=== PATIENT | male | born 1955 | race Caucasian/White ===

== ENCOUNTER 2019-08-17 13:44 | Inpatient (IN) | payer OTHER, MEDICAID ==
[~2019-08-17] VITALS: Ht 170.2 cm; Wt 58.1 kg
--- NOTE | 2019-08-17 13:47 | NUR ---
Patient to ER bed 05 to gown for evaluation. Side rails up.
[2019-08-17 13:49] VITALS: BP_SYST 110
--- NOTE | 2019-08-17 13:50 | NUR ---
Patient BIB BLS from [facility] C/O weight los and decrease in ADL. Patient A&Ox3, skin pink and warm, ambulatory, afebrile, pain 7/10, denies N/V/D. Patient states he has pain 7/10 did not respond when asked location of pain, patient non-compliant when asked to change into hospital gown for exam.
--- NOTE | 2019-08-17 13:55 | NUR ---
ER Dr. Dumont at bedside examining patient.
--- NOTE | 2019-08-17 14:00 | NUR ---
Provided patient with urinal for urine specimen collection.
--- NOTE | 2019-08-17 14:10 | NUR ---
Request patient for urine specimen. Patient unable to provide. Gave patient water and apple juice.
[2019-08-17 14:26] LABS: BASOPHILS % (AUTO) 0.4 % (0.0-2.0); EOSINOPHILS # (AUTO) 0.2 K/uL (0.0-0.4); EOSINOPHILS % (AUTO) 2.5 % (0.0-4.0); HEMATOCRIT 40.7 % (36-54); HEMOGLOBIN 13.6 g/dL (14.0-18.0); LYMPHOCYTES # (AUTO) 1.5 K/uL (1.0-5.5); LYMPHOCYTES % (AUTO) 22.4 % (20.5-51.5); MEAN CORPUSCULAR HEMOGLOBIN 31 pg (27-31); MEAN CORPUSCULAR HGB CONC 34 % (32-36); MEAN CORPUSCULAR VOLUME 93 fL (79.0-98.0); MONOCYTES # (AUTO) 0.7 K/uL (0.0-1.0); MONOCYTES % (AUTO) 9.5 % (1.7-9.3); NEUTROPHILS # (AUTO) 4.5 K/uL (1.8-7.7); NEUTROPHILS % (AUTO) 65.2 % (40.0-70.0); PLATELET COUNT (AUTO) 107 K/uL (130-430); RED BLOOD CELL COUNT(AUTO) 4.39 MIL/uL (4.2-6.2); RED CELL DISTRIBUTION WIDTH 13.3 % (9.0-15.0); WHITE BLOOD COUNT (AUTO) 6.9 K/uL (4.8-10.8)
[2019-08-17 14:46] LABS: CALCIUM 7.7 mg/dL (8.4-11.0); CREATININE 0.82 mg/dL (0.55-1.30)
[2019-08-17 14:51] LABS: ALBUMIN 2.6 g/dL (3.4-4.8); TOTAL BILIRUBIN 0.2 mg/dL (0.0-1.0)
--- NOTE | 2019-08-17 15:40 | NUR ---
Attempted In&out urine catheterization, patient refused mid procedure.
--- NOTE | 2019-08-17 15:42 | NUR ---
Made Dr. Dumont aware patient refused urine specimen collection
[2019-08-17] MEDS ORDERED: DOCU-144 PO (16:42)
[2019-08-17] MEDS ORDERED: PHEN50TA4 PO (16:45)
[2019-08-17] MEDS ORDERED: LEVE750T4 PO (16:45)
[2019-08-17] MEDS ORDERED: OSCD500 PO (16:45)
[2019-08-17] MEDS ORDERED: SIMV40TA5 PO (16:46)
--- NOTE | 2019-08-17 17:00 | NUR ---
Patient refuse IV start, x2 attempts.
--- NOTE | 2019-08-17 17:11 | NUR ---
Patient will be admitted to care of Dr. Rdz. Admitted to Tele unit. Will go to room 120A. Belongings list completed. Complete and up to date summary report printed. SBAR report to be given at bedside with opportunity for questions.
--- NOTE | 2019-08-17 17:12 | NUR ---
Transfer to 120A via ACLS protocol. Licensed nurse present. IV present no signs or symptoms of infiltration.
--- NOTE | 2019-08-17 17:20 | NUR ---
ADMISSION NOTE Received patient from ER via winsome, received report from Autumn KOENIG. Patient admitted with diagnosis of ALTERED LEVEL OF CONCIOUSNESS,METABOLIC ENCEOHALOPATHY , MALNUTRITION . Patient oriented to hospital routine, call light, toileting and safety.
[2019-08-17 17:33] VITALS: BP_SYST 101
--- NOTE | 2019-08-17 17:45 | NUR ---
Pt uncooperative with assessment and refuses to answer some questions. Pt also states he does not want IV started at this time. Pt states no pain, no distress noted.
--- NOTE | 2019-08-17 18:22 | NUR ---
Closing Pt currently eating. States he does not want an IV started at this time until after eating. Pt states no pain or distress at this time. Provided pt with sandwich.
--- NOTE | 2019-08-17 18:26 | NUR ---
Pt noted with tele box removed. Educated pt on reason for monitoring. Pt states understanding but is refusing to reapply leads and states "Leave it there on the table. I don't want it."
[2019-08-17 20:00] VITALS: BP_SYST 108
[2019-08-17] MEDS: D5NS 1,000 ML IV SCH (22:30)
[2019-08-17] MEDS: PHENYTOIN 100 MG CAPSULE PO SCH (23:38)
[2019-08-18 01:01] VITALS: BP_SYST 109
--- NOTE | 2019-08-18 02:56 | NUR ---
CONSULT: CONSULT CALLED FOR DR. GARCÍA I SPOKE WITH ADILSON SEGUNDO REASON FOR CONSULT: METABOLIC ENCEPHALOPATHY REQUESTING CONSULT: DR. BENITO TELEVISION PRODUCTION ASSISTANT"S PHONE NUMBER: [phone]
--- NOTE | 2019-08-18 03:03 | NUR ---
CONSULT: CONSULT CALLED FOR DR. HUITRON I SPOKE WITH ADILSON SEGUNDO REASON FOR CONSULT: MALNUTRITION REQUESTING CONSULT: DR. BENITO WET PROCESS OPERATOR"S PHONE NUMBER: [phone] Addendum: 08/18/19 at 0411 by Yola Santacruz ND/ GUILLERMO RAGSDALE WRAPPER LEAF INSPECTOR
[2019-08-19 19:35] VITALS: BP_SYST 104
--- NOTE | 2019-08-19 19:35 | NUR ---
INITIAL ASSESSMENT PATIENT IS LAYING IN BED AND STABLE. NO SIGNS OR SYMPTOMS OF RESPIRATORY DISTRESS NOTED. CALL LIGHT IN REACH. PATIENT UNSUCCESSFULLY DEMONSTRATES USAGE OF CALL LIGHT AT THIS TIME. WILL CONTINUE TO MONITOR AND EDUCATE FREQUENTLY. PLAN OF CARE IS DISCUSSED WITH PATIENT AT THIS TIME. BED IS LOCKED, ALARMED, AND AT THE LOWEST POSITION. FALL, SAFETY, ASPIRATION, AND SEIZURE PRECAUTION WILL BE PLACED THROUGHOUT THE SHIFT.
--- NOTE | 2019-08-19 21:35 | NUR ---
ROUNDING PATIENT IS STABLE AND SLEEPING IN BED. NO SIGNS OR SYMPTOMS OF RESPIRATORY DISTRESS NOTED. CALL LIGHT IN REACH. BED IS LOCKED, ALARMED, AND AT THE LOWEST POSITION. WILL CONTINUE TO MONITOR.
[2019-08-20 00:25] VITALS: BP_SYST 103
[2019-08-20] MEDS: D5NS 1,000 ML IV SCH (02:44)
--- NOTE | 2019-08-20 08:00 | NUR ---
Initial Notes- In bed, awake. eat by himself with good appetite. Denies any pain or discomfort. No acute distress noted. Pt is incontinent of urine. IVF infusing well. Update plan of care. sinus on the monitor. will monitor.
[2019-08-20 08:12] VITALS: BP_SYST 110
--- NOTE | 2019-08-20 08:30 | NUR ---
Pt able to swallow his pills good.
[2019-08-20] MEDS: DOCUSATE SODIUM 100 MG CAPSULE PO SCH (08:31)
[2019-08-20] MEDS: PHENYTOIN 100 MG CAPSULE PO SCH ×3 (08:31→18:08)
[2019-08-20] MEDS: SIMVASTATIN 40 MG TABLET PO SCH (08:31)
[2019-08-20] MEDS: levETIRAcetam 500 MG TABLET PO SCH (08:31)
[2019-08-20] MEDS: CALCIUM CARBONATE/VITAMIN D3 1 TAB TABLET PO SCH (08:32)
--- NOTE | 2019-08-20 10:00 | NUR ---
Has incontinent of urine. changed and repositioned.
--- NOTE | 2019-08-20 11:00 | NUR ---
Resting in bed, Denies any pain or discomfort. No distress noted.
[2019-08-20 12:35] VITALS: BP_SYST 95
[2019-08-20 16:15] VITALS: BP_SYST 107
--- NOTE | 2019-08-20 18:17 | NUR ---
closing notes- In bed, eating dinner. Pt has a good appetite the whole day. Denies any pain or discomfort. IVF infusing well. All needs meet. will endorse.
[2019-08-21 00:47] VITALS: BP_SYST 118
[2019-08-21 08:00] VITALS: BP_SYST 108
[2019-08-21] MEDS: DOCUSATE SODIUM 100 MG CAPSULE PO SCH ×2 (09:00→12:51)
[2019-08-21] MEDS: PHENYTOIN 100 MG CAPSULE PO SCH ×3 (09:00→14:05)
[2019-08-21] MEDS: levETIRAcetam 500 MG TABLET PO SCH (10:10)
[2019-08-21] MEDS: SIMVASTATIN 40 MG TABLET PO SCH (10:10)
[2019-08-21] MEDS: CALCIUM CARBONATE/VITAMIN D3 1 TAB TABLET PO SCH (10:10)
[2019-08-21 12:36] VITALS: BP_SYST 110
--- NOTE | 2019-08-21 12:36 | NUR ---
Discharge Planning: [facility] faxed pt referral to [facility] (f [phone] p [phone]) [facility] received a room 7B patient can return after 4:00pm. Addendum: 08/21/19 at 1430 by Sandra Berry DP [facility] arranges transportation with [facility] (f [phone]) 5:30pm P/U to [facility] (f [phone] p [phone]) [facility] Rm 7B. Patient packet taken to nurse station.
[2019-08-21 16:25] VITALS: BP_SYST 125
[2019-08-21 17:15] VITALS: BP_SYST 125
[2019-09-09 15:35] LABS: HEMOGLOBIN 14.3 g/dL (14.0-18.0); MEAN CORPUSCULAR HEMOGLOBIN 32 pg (27-31); MEAN CORPUSCULAR HGB CONC 34 % (32-36); MEAN CORPUSCULAR VOLUME 94 fL (79.0-98.0); PLATELET COUNT (AUTO) 127 K/uL (130-430); RED BLOOD CELL COUNT(AUTO) 4.47 MIL/uL (4.2-6.2); RED CELL DISTRIBUTION WIDTH 13.1 % (9.0-15.0); WHITE BLOOD COUNT (AUTO) 7.3 K/uL (4.8-10.8)
[2019-09-09 15:36] LABS: BASOPHILS # (AUTO) 0.1 K/uL (0.0-0.2); BASOPHILS % (AUTO) 1.6 % (0.0-2.0); EOSINOPHILS # (AUTO) 0.2 K/uL (0.0-0.4); EOSINOPHILS % (AUTO) 2.5 % (0.0-4.0); LYMPHOCYTES # (AUTO) 1.2 K/uL (1.0-5.5); LYMPHOCYTES % (AUTO) 17.2 % (20.5-51.5); MONOCYTES # (AUTO) 0.4 K/uL (0.0-1.0); MONOCYTES % (AUTO) 5.3 % (1.7-9.3); NEUTROPHILS # (AUTO) 5.3 K/uL (1.8-7.7); NEUTROPHILS % (AUTO) 73.4 % (40.0-70.0)
== END 2019-08-21 17:45 | DRG 641 ==
LOC: SED 13:44 → STU 16:27
PROVIDERS: ADMIT Internal Medicine; ATTEND Internal Medicine
DX: E86.0 Dehydration (principal); E46 Unspecified protein-calorie malnutrition; F10.27 Alcohol dependence with alcohol-induced persisting dementia; R62.7 Adult failure to thrive; E78.5 Hyperlipidemia, unspecified; F41.9 Anxiety disorder, unspecified; G40.909 Epilepsy, unspecified, not intractable, without status epilepticus; F10.20 Alcohol dependence, uncomplicated; Z68.20 Body mass index [BMI] 20.0-20.9, adult; F20.9 Schizophrenia, unspecified; Z79.899 Other long term (current) drug therapy
CPT/HCPCS: 36415; 80053; 85025; 87081; 99285; G0378; J7042

== ENCOUNTER 2021-04-05 11:53 | Inpatient (IN) | payer OTHER, MEDICAID, SELFPAY ==
[~2021-04-05] VITALS: Ht 170.2 cm; Wt 54.0 kg
[~2021-04-05 11:53] MED LIST: DOCU-144 PO; LEVE750T4 PO; OSCD500 PO; PHEN50TA4 PO; SIMV-46 PO
[2021-04-05 12:10] VITALS: BP_SYST 126
--- NOTE | 2021-04-05 12:10 | NUR ---
Patient to ER bed 2 to gown for evaluation. Side rails up. Report given to ANN KOENIG.
--- NOTE | 2021-04-05 12:20 | NUR ---
PT BIBA FROM [facility]- SENT BY DR. BENITO FOR EVALUATION OF PANCREATIC MASS. PT IS AAOX2, V/S STABLE UPON ARRIVAL. PT DENIES PAIN AT THIS TIME
--- NOTE | 2021-04-05 12:45 | NUR ---
ER DR. ARMSTRONG AT THE BEDSIDE EXAMINING PT
[2021-04-05] MEDS ORDERED: D5/0.45 NS 1,000 ML IV ONE (13:00)
--- NOTE | 2021-04-05 13:04 | NUR ---
DARIAN ORDERS RECEIVED FROM DR. BENITO
[2021-04-05 13:37] LABS: BASOPHILS % (AUTO) 0.6 % (0.0-2.0); EOSINOPHILS # (AUTO) 0.2 K/uL (0.0-0.4); EOSINOPHILS % (AUTO) 3.8 % (0.0-4.0); HEMATOCRIT 41.3 % (36-54); HEMOGLOBIN 13.8 g/dL (14.0-18.0); LYMPHOCYTES # (AUTO) 1.6 K/uL (1.0-5.5); LYMPHOCYTES % (AUTO) 28.8 % (20.5-51.5); MEAN CORPUSCULAR HEMOGLOBIN 31 pg (27-31); MEAN CORPUSCULAR HGB CONC 34 % (32-36); MEAN CORPUSCULAR VOLUME 93 fL (79.0-98.0); MONOCYTES # (AUTO) 0.6 K/uL (0.0-1.0); MONOCYTES % (AUTO) 10.4 % (1.7-9.3); NEUTROPHILS # (AUTO) 3.2 K/uL (1.8-7.7); NEUTROPHILS % (AUTO) 56.4 % (40.0-70.0); PLATELET COUNT (AUTO) 208 K/uL (130-430); RED BLOOD CELL COUNT(AUTO) 4.44 MIL/uL (4.2-6.2); RED CELL DISTRIBUTION WIDTH 12.8 % (9.0-15.0); WHITE BLOOD COUNT (AUTO) 5.7 K/uL (4.8-10.8)
[2021-04-05 13:39] LABS: CALCIUM 8.6 mg/dL (8.4-11.0); CREATININE 0.61 mg/dL (0.55-1.30); POTASSIUM 3.8 mmol/L (3.5-5.1)
[2021-04-05 13:43] LABS: ALBUMIN 3.1 g/dL (3.4-4.8); TOTAL BILIRUBIN 0.2 mg/dL (0.0-1.0)
--- NOTE | 2021-04-05 15:03 | NUR ---
Patient will be admitted to care of DR. BENITO. Admitted to MS unit. Will go to room 103B. Belongings list completed. Complete and up to date summary report printed. SBAR report to be given at bedside with opportunity for questions.
[2021-04-05 15:46] VITALS: BP_SYST 120
[2021-04-05 16:04] VITALS: BP_SYST 120
--- NOTE | 2021-04-05 16:05 | NUR ---
CONSULTATION PAGED/CALLED Reason for Consultation: [] PANCREATIC MASS Person Who was Notified: [] MP Consulting Physician: [] DR WATTS FRENCH DRAWER FOR DR HUITRON Supervisor Engine Repair Specialty: [] GI Ordering Physician: [] DR BENITO
[2021-04-05 19:00] VITALS: BP_SYST 112
--- NOTE | 2021-04-05 19:15 | NUR ---
change of shift.pt.presents quiescent affect;calm,resting.pt.presents non-verbal speech status.pt.presents iv access intact iv fluids infusing.pt.presents activity status bedrest.general status stable.respiratory status stable;unlabored@room air.call light/telephone w/in access of the pt.
--- NOTE | 2021-04-05 20:00 | NUR ---
pt.assessed.v/s assessed values wnl.per flacc pain mgx pt.absent facial grimaces/body posturing.pt.present non-verbal speech status.i have posited simple q's.iv access intact iv fluids infusing.pt.assessed for cleanliness.pt.repositioned.general status stable. respiratory status stable;unlabored.call light/telephone placed w/in access of the pt.
--- NOTE | 2021-04-05 22:00 | NUR ---
pt.assessed.pt.presents quiescent affect;calm,resting viewing tv programming.per flacc pain mgx pt.absent facial grimaces/body posturing.pt.assessed for cleanliness.pt.repositioned.general status stable.respiratory status stable.call light/telephone placed w/in access of the pt.
[2021-04-06] VITALS: BP_SYST 110
--- NOTE | 2021-04-06 | NUR ---
pt.assessed.v/s assessed values wnl.per flacc pain mgx pt.absent facial grimaces/body posturing.pt.assessed for cleanliness.pt. repositioned.iv access intact iv fluids infusing.general status stable.respiratory status stable;unlabored.call light/telephone placed w/in access of the pt.
--- NOTE | 2021-04-06 02:00 | NUR ---
pt.assessed.pt.presents quiescent affect;calm,somnolent.per flacc pain mgx pt.absent facial grimaces/body posturing.pt.assessed for cleanliness.pt.repositioned.iv access intact iv fluids infusing.general status stable.respiratory status stable.call light/telephone placed w/in access of the pt.
--- NOTE | 2021-04-06 04:00 | NUR ---
pt.assessed.pt.presents quiescent affect;calm,somnolent.per flacc pain mgx pt.absent facial grimaces/body posturing. iv access intact iv fluids infusing.pt.assessed for cleanliness.pt.repositioned.call light/telephone placed w/in access of the pt.
[2021-04-06 08:00] VITALS: BP_SYST 128
--- NOTE | 2021-04-06 08:00 | NUR ---
Initial note: Patient is awake, alert x1 to his name. He looks comfortable on bed, no sign of distress. He is on D51/2 NS IVF at 75 ml/hr infusing well via right FA # [phone], no sign of infiltration noted.
--- NOTE | 2021-04-06 09:15 | NUR ---
Nutrition Update Ronni Scale 15 noted. Pt admitted for pancreatic mass, abd pain, hyponatremia. Diet: mechanical soft BMI: 18.6 kg/m2 RD to follow per nutrition care standards.
--- NOTE | 2021-04-06 10:07 | NUR ---
Case mgt: S/W sister Michelle on phone-she lives in [place] but is [id number] says her brother Henry is local but doesn't answer his phone-pt lives at [facility] and she wants him to return there when ready for discharge-per sister, pt unable to walk-she saw him at SNF 2 weeks ago-f/u for dc planning back to snf ([facility] discharge[facility] vs snf LOC--OCTAVIA RN
[2021-04-06 11:23] VITALS: BP_SYST 121
[2021-04-06 15:36] VITALS: BP_SYST 118
--- NOTE | 2021-04-06 18:52 | NUR ---
Closing note: Patient is stable, tolerated oral diet well, no sign of distress. He is on the last bag if IVF D5 1/2 NS infusing at 75 ml/hr.
--- NOTE | 2021-04-06 19:11 | NUR ---
OPENING NOTES RECEIVED PATIENT RESTING, NO SIGNS OF DISTRESS NOTED. FALL, SAFETY, RESPIRATORY, SEIZURE, AND ASPIRATION PRECAUTIONS IN PLACE. SEIZURE PADS IN PLACE. CALL LIGHT WITHIN REACH, PATIENT UNABLE TO DEMONSTRATE BACK CALL LIGHT USAGE, WILL FOLLOW CLOSELY, BED ALARM ON, BED AT LOWEST POSITION, BED LOCKED. WILL CONTINUE TO MONITOR.
[2021-04-06 20:00] VITALS: BP_SYST 110
[2021-04-06] MEDS ORDERED: levETIRAcetam 500 MG TABLET PO ONE (20:15)
--- NOTE | 2021-04-06 21:45 | NUR ---
INCONTINENCE CARE PROVIDED. NO SIGNS OF DISTRESS NOTED. WILL CONTINUE TO MONITOR.
[2021-04-07] VITALS: BP_SYST 108
--- NOTE | 2021-04-07 01:36 | NUR ---
PATIENT RESTING, NO SIGNS OF DISTRESS NOTED AT THIS TIME. SELF ANN. WILL CONTINUE TO MONITOR.
--- NOTE | 2021-04-07 06:30 | NUR ---
PATIENT BEHAVIOR DURING BLOOD DRAW BLOOD DRAW UNSUCCESSFUL WITH NURSE AND SITTER AND DIRECTOR OF GIFT PLANNING AT BEDSIDE WITH REORIENTATION AND PATIENT EDUCATION PROVIDED. PATIENT KICKS AND TRIES TO HIT. DIRECTOR OF GIFT PLANNING TO ENDORSE TO NEXT DIRECTOR OF GIFT PLANNING. WILL ENDORSE TO ONCOMING RN.
--- NOTE | 2021-04-07 07:12 | NUR ---
CLOSING NOTES PATIENT RESTING, NO SIGNS OF SOB THROUGHOUT SHIFT. CALL LIGHT WITHIN REACH, BED ALARM ON, BED AT LOWEST POSITION, BED LOCKED. FALL, RESPIRATORY, ASPIRATION, SEIZURE AND SAFETY PRECAUTIONS IN PLACE THROUGHOUT SHIFT. PATIENT DID NOT DEMONSTRATE PROPER CALL LIGHT USAGE THROUGHOUT SHIFT, FOLLOWED CLOSELY. ALL NEEDS MET THROUGHOUT SHIFT. WILL ENDORSE CARE TO ONCOMING SHIFT.
--- NOTE | 2021-04-07 07:48 | NUR ---
A/OX3. IV to Right FA 22g patent and intact. Patient oriented name. On room air. Call light in place, bed locked at the lowest position with alarm on, side rails padded, with urinal at bedside.
[2021-04-07 08:00] VITALS: BP_SYST 109
[2021-04-07] MEDS: SIMVASTATIN 40 MG TABLET PO SCH (08:00)
[2021-04-07] MEDS: levETIRAcetam 500 MG TABLET PO SCH (08:00)
[2021-04-07] MEDS: CALCIUM CARBONATE/VITAMIN D3 1 TAB TABLET PO SCH (08:00)
[2021-04-07] MEDS: DOCUSATE SODIUM 100 MG CAPSULE PO SCH (08:00)
--- NOTE | 2021-04-07 12:00 | NUR ---
Patient is eating lunch at this time. Tolerated without distress.
[2021-04-07 12:20] VITALS: BP_SYST 120
--- NOTE | 2021-04-07 16:20 | NUR ---
Patient has an episode of urinary incontinence. Patient is changed and repositioned for comfort.
[2021-04-07 16:33] VITALS: BP_SYST 124
--- NOTE | 2021-04-07 18:51 | NUR ---
Patient is stable, tolerated oral diet well, no sign of distress noted.
--- NOTE | 2021-04-07 19:20 | NUR ---
Opening note Received patient awake, resting in bed, non labored breathing on room air. He has meal tray at bedside and is eating. IV to RFA is SL. Bed is locked in lowest position, side rails up 3x, seizure pads on top rails, bed alarm on and call light w/in reach.
[2021-04-07 20:00] VITALS: BP_SYST 122
[2021-04-08 08:01] VITALS: BP_SYST 122
[2021-04-08] MEDS: CALCIUM CARBONATE/VITAMIN D3 1 TAB TABLET PO SCH (11:08)
[2021-04-08] MEDS: levETIRAcetam 500 MG TABLET PO SCH (11:08)
[2021-04-08] MEDS: SIMVASTATIN 40 MG TABLET PO SCH (11:09)
[2021-04-08] MEDS: DOCUSATE SODIUM 100 MG CAPSULE PO SCH (11:09)
[2021-04-08 12:01] VITALS: BP_SYST 118; BP_SYST 122
[2021-04-08 16:05] VITALS: BP_SYST 110
--- NOTE | 2021-04-08 20:45 | NUR ---
Patient awake alert assist for position change FALL MEASURES implemented Bed Alarm is ON .
[2021-04-08 22:00] VITALS: BP_SYST 125
--- NOTE | 2021-04-08 22:37 | NUR ---
Hourly Rounding patient Resting HOB elevated call espinosa given to patient skin dry warm .
--- NOTE | 2021-04-09 03:20 | NUR ---
SEIZURE PRECAUTIONS side Rails Remain padded patient Resting .
[2021-04-09 04:17] VITALS: BP_SYST 123
--- NOTE | 2021-04-09 05:35 | NUR ---
SAFETY MEASURES patient awake alert Reposition & Turn on schedule activity tolerate no SOB noted skin dry warm .
[2021-04-09 08:00] VITALS: BP_SYST 121
--- NOTE | 2021-04-09 08:00 | NUR ---
initial notes rec patient awake but confused. ivl on the l hand . no infiltration noted. resp easy and unlabored. no sob noted bed to the lowest position and call light within reached. pt close to the nurses station.
[2021-04-09] MEDS: levETIRAcetam 500 MG TABLET PO SCH (09:16)
[2021-04-09] MEDS: SIMVASTATIN 40 MG TABLET PO SCH (09:16)
[2021-04-09] MEDS: DOCUSATE SODIUM 100 MG CAPSULE PO SCH (09:16)
[2021-04-09 12:16] VITALS: BP_SYST 140
--- NOTE | 2021-04-09 12:31 | NUR ---
Patient accepted at [facility] room 42A-number for report [phone]. Ambulance transport at 2:30 PM by [facility] discharge disposition [id number]
[2021-04-09 12:46] VITALS: BP_SYST 131
--- NOTE | 2021-04-09 14:30 | NUR ---
rounds pt's brother suellen and sister joseluis aware of patient's discharged back to [facility]. spoke with ramiro and gave report re patient. 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
--- NOTE | 2021-04-09 14:55 | NUR ---
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 stable. no sob noted. needs met
--- NOTE | 2021-04-14 21:31 | NUR ---
PATIENT WAS DISCHARGE ON 04/09/21 PT WAS DC TO SNF DISPOSITION CHANGED FROM 83 TO 03
== END 2021-04-09 14:55 | DRG 439 ==
LOC: SED 11:53 → SMU 13:00
PROVIDERS: ADMIT Internal Medicine; ATTEND Internal Medicine
DX: K86.9 Disease of pancreas, unspecified (principal); E44.0 Moderate protein-calorie malnutrition; Z68.1 Body mass index [BMI] 19.9 or less, adult; E78.5 Hyperlipidemia, unspecified; G40.909 Epilepsy, unspecified, not intractable, without status epilepticus; F10.97 Alcohol use, unspecified with alcohol-induced persisting dementia; Y90.9 Presence of alcohol in blood, level not specified; Z20.822 Contact with and (suspected) exposure to COVID-19; Z79.899 Other long term (current) drug therapy
CPT/HCPCS: 36415; 80053; 83605; 83690; 85025; 87040-TC; 99285